=== PATIENT | male | born 1970 | race Caucasian/White ===

== ENCOUNTER → 2019-06-12 | Outpatient (CLI) | payer OTHER ==
[~2019-06-12] MED LIST: ALUMINUM POTAS PO; BENTYL 20 MG TA20 M1 PO; CARVEDILOL6.25 MG PO; COUMADIN 10MG T10 M1 PO; COUMADIN 2 MG TA2 M1 PO; COUMADIN 3 MG TA3 MG PO; GEMFIBROZIL 60600 MG; GLUCOPHAGE500 MG PO; HUMALOG100 UNIT/1; LANTUS SUBQ; NIASPAN 500 MG500 M1 PO; NOVOLIN N100 UNIT/1; POTASSIUM GLUCO90 MG; PROTONIX40 M2 PO; SIMVASTATIN20 MG PO; ZESTRIL10 MG PO
== END ==
LOC: CAT 14:22
DX: Z13.6 Encounter for screening for cardiovascular disorders (principal); I25.10 Atherosclerotic heart disease of native coronary artery without angina pectoris; E78.00 Pure hypercholesterolemia, unspecified

== ENCOUNTER → 2021-04-15 | Outpatient (CLI) | payer BC | LOC: SJCVCIMAG 08:21 | PROVIDERS: ATTEND Internal Medicine Cardiovascular Disease | DX: R00.0 Tachycardia, unspecified (principal); I45.10 Unspecified right bundle-branch block; I25.10 Atherosclerotic heart disease of native coronary artery without angina pectoris; I42.9 Cardiomyopathy, unspecified; E11.9 Type 2 diabetes mellitus without complications; I10 Essential (primary) hypertension; E78.5 Hyperlipidemia, unspecified ==